=== PATIENT | male | born 1980 | race Asian ===

== ENCOUNTER 2023-06-28 19:58 | Emergency (ER) | payer MEDICARE, MEDICAID ==
[~2023-06-28] VITALS: Ht 162.6 cm; Wt 91.0 kg
[2023-06-28 20:05] VITALS: BP 158/92; PULSE 100; RESP 16; TEMP 98.6; O2SAT 100
[2023-06-28] MEDS ORDERED: DIVA500T3 MT (20:59)
[2023-06-28] MEDS ORDERED: OLAN5TAB3 MT (20:59)
[2023-06-28] MEDS ORDERED: METF-414 MT (20:59)
== END 2023-06-28 21:23 | disposition home or self-care (01) ==
LOC: ER 19:58
DX: F19.10 Other psychoactive substance abuse, uncomplicated (principal); E11.9 Type 2 diabetes mellitus without complications; Z76.0 Encounter for issue of repeat prescription
CPT/HCPCS: 99281